=== PATIENT | male | born 1940 | race Caucasian/White ===

== ENCOUNTER 2022-10-16 13:03 | Inpatient (IN) | payer BC, OTHER ==
[2022-10-16] MEDS ORDERED: SODIUM CHLORIDE 0.9% 500 ML INFUS.BAG IV ONE (14:06)
[2022-10-16 14:55] LABS: BASO % 0.2 % (0-2.0); EOS % 0.3 % (0-4.5); HEMATOCRIT 40.3 % (35.4-49); HEMOGLOBIN 13.7 GM/dL (11.7-16.9); LYMPH % 9.8 % (8-40); MCH 32.8 pg (25.7-33.7); MCHC 34.1 g/dl (32.0-35.9); MEAN CELL VOLUME 96.2 fl (80-96); MEAN PLT VOLUME 8.3 fl (7.5-11.1); MONO % 5.3 % (3.8-10.2); NEUT % 84.4 % (42.8-82.8); PLATELET COUNT 151 10^3/uL (134-434); RBC 4.18 M/mm3 (4.00-5.60); RDW 13.9 % (11.9-15.9); WHITE BLOOD COUNT 9.6 K/mm3 (4.0-10.0)
[2022-10-16 14:57] LABS: VENOUS BASE EXCESS -1.7 mmol/L (-2-2); VENOUS O2 SATURATION 34.4 % (70-80); VENOUS PCO2 44.9 mmHg (38-52); VENOUS PH 7.348 (7.310-7.410)
[2022-10-16 15:02] LABS: INR 1.12 (0.83-1.09)
[2022-10-16 15:14] LABS: CHLORIDE 103 mmol/L (98-107); SODIUM 139 mmol/L (136-145)
[2022-10-16 15:16] LABS: CALCIUM 9.4 mg/dL (8.5-10.1)
[2022-10-16 15:17] LABS: ANION GAP 8 MMOL/L (8-16); BLOOD UREA NITROGEN 22.8 mg/dL (7-18); CO2 27 mmol/L (21-32); GLUCOSE,RANDOM 112 mg/dL (74-106)
[2022-10-16 15:20] LABS: CREATININE 1.4 mg/dL (0.55-1.3); SGOT/AST 32 U/L (15-37); SGPT/ALT 30 U/L (13-61)
[2022-10-16 15:21] LABS: BILIRUBIN,TOTAL 0.6 mg/dL (0.2-1)
[2022-10-16 15:22] LABS: TOT PROT 7.4 g/dl (6.4-8.2)
[2022-10-16 15:23] LABS: ALK PHOS 99 U/L (45-117); EPI CELLS 5 /uL (0-25.1); HYALINE CASTS 4 /uL (0-3.1); URINE APPEARANCE CLEAR; URINE BACTERIA 9 /uL (0-1359); URINE BILIRUBIN NEGATIVE (NEGATIVE); URINE COLOR YELLOW; URINE GLUCOSE (UA) NEGATIVE (NEGATIVE); URINE KETONE TRACE (NEGATIVE); URINE LEUK ESTERASE NEGATIVE (NEGATIVE); URINE NITRITE NEGATIVE (NEGATIVE); URINE PROTEIN 1+ (NEGATIVE); URINE RBC 18 /uL (0-23.9); URINE WBC 9 /uL (0-25.8)
[2022-10-16] MEDS ORDERED: SODIUM CHLORIDE 1,000 ML IV STA (16:52)
[2022-10-16 17:54] LABS: LACTIC ACID 2.2 mmol/L (0.4-2.0)
[2022-10-16] MEDS: HEPARIN NA (PORCINE) 5,000 UNITS/ML 1ML VIAL SQ SCH (23:08)
[2022-10-16] MEDS: LACTATED RINGERS SOLUTION 1,000 ML/1,000 ML INFUS.BAG IV SCH (23:08)
[2022-10-16] MEDS ORDERED: ATORVASTATIN CA 80 MG TABLET (FP) ONE (23:09)
[2022-10-17] MEDS: HEPARIN NA (PORCINE) 5,000 UNITS/ML 1ML VIAL SQ SCH ×3 (06:31→21:19)
[2022-10-17] MEDS: LEVOTHYROXINE NA 25 MCG TABLET (FP) PO SCH (06:43)
[2022-10-17 08:18] LABS: BASO % 0.3 % (0-2.0); EOS % 0.5 % (0-4.5); HEMATOCRIT 34.8 % (35.4-49); HEMOGLOBIN 11.9 GM/dL (11.7-16.9); LYMPH % 10.5 % (8-40); MCH 32.7 pg (25.7-33.7); MCHC 34.3 g/dl (32.0-35.9); MEAN CELL VOLUME 95.5 fl (80-96); MEAN PLT VOLUME 8.4 fl (7.5-11.1); MONO % 7.3 % (3.8-10.2); NEUT % 81.4 % (42.8-82.8); PLATELET COUNT 142 10^3/uL (134-434); RBC 3.65 M/mm3 (4.00-5.60); WHITE BLOOD COUNT 9.5 K/mm3 (4.0-10.0)
[2022-10-17 08:44] LABS: ALBUMIN 3.7 g/dl (3.4-5.0); MAGNESIUM 1.6 mg/dL (1.8-2.4)
[2022-10-17 08:47] LABS: CREATININE 1.4 mg/dL (0.55-1.3)
[2022-10-17 08:48] LABS: BILIRUBIN,TOTAL 0.7 mg/dL (0.2-1); TOT PROT 6.7 g/dl (6.4-8.2)
[2022-10-17] MEDS: TAMSULOSIN HCL 0.4 MG CAP PO SCH (09:57)
[2022-10-17] MEDS ORDERED: LORazepam 2 MG/ML SDV VIAL IVPUSH ONE (20:52)
[2022-10-17] MEDS: ATORVASTATIN CA 80 MG TABLET (FP) PO SCH (21:20)
[2022-10-17] MEDS: LACTATED RINGERS SOLUTION 1,000 ML/1,000 ML INFUS.BAG IV SCH (23:00)
[2022-10-18] MEDS: HEPARIN NA (PORCINE) 5,000 UNITS/ML 1ML VIAL SQ SCH ×3 (05:32→21:53)
[2022-10-18] MEDS: LEVOTHYROXINE NA 25 MCG TABLET (FP) PO SCH (06:11)
[2022-10-18 08:08] LABS: BASO % 0.2 % (0-2.0); EOS % 0.4 % (0-4.5); HEMATOCRIT 38.5 % (35.4-49); HEMOGLOBIN 13.4 GM/dL (11.7-16.9); LYMPH % 12.4 % (8-40); MCHC 34.8 g/dl (32.0-35.9); MEAN PLT VOLUME 8.6 fl (7.5-11.1); MONO % 7.1 % (3.8-10.2); NEUT % 79.9 % (42.8-82.8); PLATELET COUNT 156 10^3/uL (134-434); RBC 4.05 M/mm3 (4.00-5.60); RDW 13.9 % (11.9-15.9); WHITE BLOOD COUNT 8.4 K/mm3 (4.0-10.0)
[2022-10-18 08:31] LABS: ALBUMIN 3.7 g/dl (3.4-5.0); CALCIUM 9.5 mg/dL (8.5-10.1)
[2022-10-18 08:32] LABS: BLOOD UREA NITROGEN 13.6 mg/dL (7-18)
[2022-10-18 08:34] LABS: CREATININE 1.1 mg/dL (0.55-1.3)
[2022-10-18 08:36] LABS: BILIRUBIN,TOTAL 0.6 mg/dL (0.2-1)
[2022-10-18] MEDS: ACETAMINOPHEN 325 MG TABLET (FP) PO PRN ×2 (09:17→21:54)
[2022-10-18] MEDS: TAMSULOSIN HCL 0.4 MG CAP PO SCH (09:17)
[2022-10-18 15:39] VITALS: BMI 24.7
[2022-10-18] MEDS: ATORVASTATIN CA 80 MG TABLET (FP) PO SCH (21:53)
[2022-10-18] MEDS ORDERED: QUEtiapine FUMARATE 25 MG TABLET PO SCH (22:00)
[2022-10-19] MEDS: MELATONIN 5 MG TABLETS PO PRN (00:22)
[2022-10-19] MEDS ORDERED: QUEtiapine FUMARATE 25 MG TABLET PO ONE ×2 (01:51→23:39)
[2022-10-19] MEDS: HEPARIN NA (PORCINE) 5,000 UNITS/ML 1ML VIAL SQ SCH ×3 (05:13→21:15)
[2022-10-19 08:28] LABS: BASO % 0.5 % (0-2.0); EOS % 1.6 % (0-4.5); HEMOGLOBIN 13.3 GM/dL (11.7-16.9); LYMPH % 21.4 % (8-40); MCH 31.9 pg (25.7-33.7); MCHC 33.4 g/dl (32.0-35.9); MEAN CELL VOLUME 95.5 fl (80-96); MEAN PLT VOLUME 8.9 fl (7.5-11.1); MONO % 7.5 % (3.8-10.2); PLATELET COUNT 163 10^3/uL (134-434); RBC 4.18 M/mm3 (4.00-5.60); RDW 14.1 % (11.9-15.9)
[2022-10-19 08:55] LABS: CALCIUM 9.2 mg/dL (8.5-10.1)
[2022-10-19 08:56] LABS: ALBUMIN 3.4 g/dl (3.4-5.0); BLOOD UREA NITROGEN 19.6 mg/dL (7-18); MAGNESIUM 1.9 mg/dL (1.8-2.4)
[2022-10-19 08:59] LABS: CREATININE 1.1 mg/dL (0.55-1.3); PHOSPHOROUS 3.9 mg/dL (2.5-4.9)
[2022-10-19 09:00] LABS: BILIRUBIN,TOTAL 0.5 mg/dL (0.2-1)
[2022-10-19 09:01] LABS: TOT PROT 6.5 g/dl (6.4-8.2)
[2022-10-19] MEDS: TAMSULOSIN HCL 0.4 MG CAP PO SCH (10:48)
[2022-10-19] MEDS: ASPIRIN 81 MG CHEWABLE TABLETS PO SCH (10:48)
[2022-10-19] MEDS: THIAMINE HCL 200 MG/2 ML VIAL IVPB SCH ×2 (10:53→21:15)
[2022-10-19] MEDS ORDERED: QUEtiapine FUMARATE 25 MG TABLET PO PRN (16:44)
[2022-10-19] MEDS: ATORVASTATIN CA 80 MG TABLET (FP) PO SCH (21:14)
[2022-10-20] MEDS ORDERED: QUEtiapine FUMARATE 25 MG TABLET PO ONE (00:50)
[2022-10-20] MEDS: MELATONIN 5 MG TABLETS PO PRN ×2 (01:49→21:41)
[2022-10-20] MEDS ORDERED: LISINOPRIL 5 MG TABLET PO ONE (02:36)
[2022-10-20] MEDS ORDERED: ISOSORBIDE MONONITRATE 60 MG TAB.SR.24H (FP) PO ONE (02:37)
[2022-10-20] MEDS: HEPARIN NA (PORCINE) 5,000 UNITS/ML 1ML VIAL SQ SCH ×2 (05:44→14:29)
[2022-10-20] MEDS: TAMSULOSIN HCL 0.4 MG CAP PO SCH (08:28)
[2022-10-20] MEDS: ACETAMINOPHEN 325 MG TABLET (FP) PO PRN ×2 (08:28→21:38)
[2022-10-20 09:05] LABS: BASO % 0.3 % (0-2.0); EOS % 0.1 % (0-4.5); HEMATOCRIT 39.8 % (35.4-49); HEMOGLOBIN 13.4 GM/dL (11.7-16.9); LYMPH % 6.4 % (8-40); MCHC 33.6 g/dl (32.0-35.9); MEAN CELL VOLUME 95.1 fl (80-96); MEAN PLT VOLUME 8.9 fl (7.5-11.1); MONO % 3.8 % (3.8-10.2); NEUT % 89.4 % (42.8-82.8); PLATELET COUNT 188 10^3/uL (134-434); RBC 4.19 M/mm3 (4.00-5.60); WHITE BLOOD COUNT 8.8 K/mm3 (4.0-10.0)
[2022-10-20 09:28] LABS: ALBUMIN 3.6 g/dl (3.4-5.0); BLOOD UREA NITROGEN 29.1 mg/dL (7-18); CALCIUM 9.2 mg/dL (8.5-10.1)
[2022-10-20 09:29] LABS: MAGNESIUM 1.9 mg/dL (1.8-2.4)
[2022-10-20] MEDS: ASPIRIN 81 MG CHEWABLE TABLETS PO SCH (09:29)
[2022-10-20] MEDS: THIAMINE HCL 200 MG/2 ML VIAL IVPB SCH ×2 (09:29→21:35)
[2022-10-20 09:32] LABS: CREATININE 1.3 mg/dL (0.55-1.3)
[2022-10-20 09:33] LABS: BILIRUBIN,TOTAL 0.6 mg/dL (0.2-1); TOT PROT 6.8 g/dl (6.4-8.2)
[2022-10-20] MEDS: OLANZapine 2.5 MG TABLET PO SCH (21:34)
[2022-10-20] MEDS: METOPROLOL TARTRATE 25 MG TABLET (FP) PO SCH (21:37)
[2022-10-20] MEDS: ATORVASTATIN CA 80 MG TABLET (FP) PO SCH (21:41)
[2022-10-21 08:26] LABS: BASO % 0.2 % (0-2.0); EOS % 0.7 % (0-4.5); HEMATOCRIT 40.1 % (35.4-49); HEMOGLOBIN 13.7 GM/dL (11.7-16.9); MCH 32.6 pg (25.7-33.7); MCHC 34.2 g/dl (32.0-35.9); MEAN CELL VOLUME 95.4 fl (80-96); MEAN PLT VOLUME 8.7 fl (7.5-11.1); MONO % 8.9 % (3.8-10.2); NEUT % 74.2 % (42.8-82.8); PLATELET COUNT 217 10^3/uL (134-434); RDW 14.3 % (11.9-15.9); WHITE BLOOD COUNT 11.3 K/mm3 (4.0-10.0)
[2022-10-21] MEDS: LISINOPRIL 5 MG TABLET PO SCH (09:07)
[2022-10-21] MEDS: ASPIRIN 81 MG CHEWABLE TABLETS PO SCH (09:11)
[2022-10-21] MEDS: amLODIPine BESYLATE 10 MG TABLET (FP) PO SCH (09:11)
[2022-10-21] MEDS: METOPROLOL TARTRATE 25 MG TABLET (FP) PO SCH ×2 (09:11→22:03)
[2022-10-21] MEDS: THIAMINE HCL 200 MG/2 ML VIAL IVPB SCH ×2 (09:12→22:01)
[2022-10-21] MEDS: TAMSULOSIN HCL 0.4 MG CAP PO SCH (09:12)
[2022-10-21] MEDS: MELATONIN 5 MG TABLETS PO PRN (22:03)
[2022-10-21] MEDS: ATORVASTATIN CA 80 MG TABLET (FP) PO SCH (22:03)
[2022-10-21] MEDS: OLANZapine 2.5 MG TABLET PO SCH (22:03)
[2022-10-22 07:33] LABS: BASO % 0.5 % (0-2.0); EOS % 1.1 % (0-4.5); HEMOGLOBIN 13.5 GM/dL (11.7-16.9); LYMPH % 15.6 % (8-40); MCH 32.2 pg (25.7-33.7); MEAN CELL VOLUME 97.4 fl (80-96); MEAN PLT VOLUME 8.8 fl (7.5-11.1); MONO % 8.5 % (3.8-10.2); NEUT % 74.3 % (42.8-82.8); PLATELET COUNT 205 10^3/uL (134-434); RBC 4.21 M/mm3 (4.00-5.60); RDW 14.2 % (11.9-15.9); WHITE BLOOD COUNT 7.2 K/mm3 (4.0-10.0)
[2022-10-22 08:31] LABS: ALBUMIN 3.4 g/dl (3.4-5.0); BLOOD UREA NITROGEN 36.1 mg/dL (7-18); PHOSPHOROUS 3.9 mg/dL (2.5-4.9)
[2022-10-22 08:34] LABS: CREATININE 1.3 mg/dL (0.55-1.3); MAGNESIUM 2.2 mg/dL (1.8-2.4)
[2022-10-22 08:35] LABS: CALCIUM 9.4 mg/dL (8.5-10.1)
[2022-10-22 08:39] LABS: TOT PROT 6.6 g/dl (6.4-8.2)
[2022-10-22 08:40] LABS: BILIRUBIN,TOTAL 0.6 mg/dL (0.2-1); INR 1.08 (0.83-1.09); PROTHROMBIN TIME (PATIENT) 12.5 SEC (9.7-13.0)
[2022-10-22] MEDS: LISINOPRIL 5 MG TABLET PO SCH (10:39)
[2022-10-22] MEDS: amLODIPine BESYLATE 10 MG TABLET (FP) PO SCH (10:39)
[2022-10-22] MEDS: THIAMINE HCL 200 MG/2 ML VIAL IVPB SCH (10:40)
[2022-10-22] MEDS: TAMSULOSIN HCL 0.4 MG CAP PO SCH (10:40)
[2022-10-22] MEDS: METOPROLOL TARTRATE 25 MG TABLET (FP) PO SCH (10:40)
[2022-10-22] MEDS ORDERED: FENTANYL CITRATE/PF 50 MCG/ML VIAL ONE ×2 (11:36)
[2022-10-22] MEDS ORDERED: SODIUM CHLORIDE 500 ML IV SCH (12:30)
[2022-10-22 13:38] VITALS: BP 125/63; PULSE 61; RESP 18; TEMP 98.6
[2022-10-23 00:35] LABS: HIV INTERPRETATION NEGATIVE (NEGATIVE)
== END 2022-10-22 17:15 | disposition home or self-care (01) | DRG 307 ==
LOC: JER 13:03 → JERBED 18:38 → J4S 10-17 01:17
PROVIDERS: ADMIT Internal Medicine; ATTEND Internal Medicine
DX: I35.0 Nonrheumatic aortic (valve) stenosis (principal); R64 Cachexia; R55 Syncope and collapse; I10 Essential (primary) hypertension; E78.5 Hyperlipidemia, unspecified; N40.0 Benign prostatic hyperplasia without lower urinary tract symptoms; E03.9 Hypothyroidism, unspecified; N28.1 Cyst of kidney, acquired; F03.90 Unspecified dementia, unspecified severity, without behavioral disturbance, psychotic disturbance, mood disturbance, and anxiety; I73.9 Peripheral vascular disease, unspecified; R01.1 Cardiac murmur, unspecified; I71.21 Aneurysm of the ascending aorta, without rupture; R00.0 Tachycardia, unspecified; R41.82 Altered mental status, unspecified; A53.9 Syphilis, unspecified; Z68.24 Body mass index [BMI] 24.0-24.9, adult
CPT/HCPCS: 0241U-QW; 36415; 62272; 70450-TC; 71045-TC-FY; 71275-TC; 72125-TC; 74174-TC; 80053; 81003; 82553; 82607; 82803; 83605; 83735; 84100; 84439; 84443; 84484; 85025; 85027; 85610; 85730; 86593; 86780; 86850; 86900; 86901; 87040; 87086; 87389; 93005; 93010; 93306-TC; 93880-TC; 97116-GP; 99285-25; J1644; Q9967